=== PATIENT | female | born 1955 | race Two or more races ===

== ENCOUNTER 2023-08-31 02:56 | Inpatient (IN) | payer MEDICARE, OTHER ==
[~2023-08-31] VITALS: Ht 162.6 cm; Wt 83.5 kg
[2023-08-31 03:00] VITALS: PULSE 89; RESP 15; O2SAT 93
[2023-08-31] MEDS: MORPHINE SULFATE 4 MG/ML SYR/VIAL IV ONE (03:41)
[2023-08-31] MEDS: ONDANSETRON HCL 4 MG/2 ML VIAL IV ONE (03:41)
[2023-08-31] MEDS ORDERED: MORPHINE SULFATE INJ 2 MG/ml SYRG IV PRN (05:15)
[2023-08-31] MEDS ORDERED: DEXTROSE (50%) 50ML SYRG IV PRN (05:15)
[2023-08-31] MEDS: SODIUM CHLORIDE 0.9% 1,000 ML IV SCH (05:34)
[2023-08-31] MEDS: InsuLIN REG 1unit/0.01ml Soln (100units/ml) SC SCH ×2 (06:00→16:59)
[2023-08-31 06:21] LABS: Alanine Aminotransferase 31 U/L (7-40); Albumin 3.6 g/dL (3.2-4.8); Alkaline Phosphatase 82 U/L (46-116); Anion Gap 7 (5-15); Aspartate Aminotransferase 25 U/L (13-40); BUN/Creatinine Ratio 28.3 (10.0-20.0); Bilirubin, Total 0.8 mg/dL (0.2-1.0); Blood Urea Nitrogen 15 mg/dL (9-23); Calcium 8.6 mg/dL (8.7-10.4); Carbon Dioxide 24 mmol/L (20-30); Chloride 111 mmol/L (98-107); Glucose 128 mg/dL (74-106); Potassium 3.9 mmol/L (3.5-5.1); Sodium 142 mmol/L (136-145); Total Protein 5.9 g/dL (5.7-8.2)
[2023-08-31 06:22] LABS: INR 1.04 (0.9-1.15); Partial Thromboplastin Time 27.6 SEC (24.5-34.5); Prothrombin Time 10.9 sec (9.3-11.8)
[2023-08-31] MEDS: ACCU-CHEK COMFORT CURVE STRIP VI SCH ×2 (06:22→16:58)
[2023-08-31 06:34] LABS: Basophils # (auto) 0 10 ^3/uL (0-0.2); Basophils % (auto) 0.3 % (0.0-2.0); Eosinophils # (auto) 0 10 ^3/uL (0-0.8); Eosinophils % (auto) 0.2 % (0.0-7.0); Hematocrit 44.2 % (36.0-46.0); Hemoglobin 14.4 g/dL (12.2-16.2); Lymphocytes # (auto) 0.6 10 ^3/uL (0.4-5.4); Lymphocytes % (auto) 7.8 % (10.0-50.0); Mean Corpuscular Hemoglobin 30.5 pg (28.0-32.0); Mean Corpuscular Hgb Conc. 32.6 g/dL (32.0-36.0); Mean Corpuscular Volume 93.5 fL (80.0-100.0); Monocytes # (auto) 0.2 10 ^3/uL (0-1.3); Neutrophils # (auto) 7.4 10 ^3/uL (1.6-8.6); Neutrophils % (auto) 88.7 % (37.0-80.0); Nucleated Red Blood Cells % 0.1 %; Red Blood Cells 4.73 10^6/uL (4.0-5.20); Red Cell Distribution Width 14.8 % (11.8-14.3); White Blood Cell 8.3 10^3/uL (4.4-10.8)
[2023-08-31] MEDS: GASTROGRAFIN 120 ML SOL ONE (07:07)
[2023-08-31] MEDS: ONDANSETRON HCL 4 MG/2 ML VIAL IV PRN (07:47)
[2023-08-31 08:56] VITALS: PULSE 84; RESP 13; O2SAT 95
[2023-08-31] MEDS: PANTOPRAZOLE 40 MG/10 ML VIAL INJ IV ONE (15:30)
[2023-08-31 21:15] VITALS: PULSE 89; RESP 16; O2SAT 96
[2023-09-01 05:28] LABS: Chloride 111 mmol/L (98-107); Potassium 3.2 mmol/L (3.5-5.1); Sodium 141 mmol/L (136-145)
[2023-09-01 05:29] LABS: Anion Gap 6 (5-15); Carbon Dioxide 24 mmol/L (20-30)
[2023-09-01 05:30] LABS: Calcium 8.8 mg/dL (8.7-10.4)
[2023-09-01 05:34] LABS: BUN/Creatinine Ratio 18.4 (10.0-20.0); Blood Urea Nitrogen 9 mg/dL (9-23); Glucose 107 mg/dL (74-106)
[2023-09-01] MEDS: POTASSIUM CHL 20 Meq TABLET PO ONE (09:30)
[2023-09-01 09:38] VITALS: BP 142/84; PULSE 109; RESP 16; TEMP 36.8; O2SAT 91
[2023-09-01] MEDS ORDERED: PANTOPRAZOLE 40 MG/10 ML VIAL INJ IV SCH (10:00)
[2023-09-01 10:06] VITALS: BP 142/84; PULSE 109; RESP 16; TEMP 36.8; O2SAT 91
== END 2023-09-01 10:31 | disposition home or self-care (01) | DRG 392 ==
LOC: ER 02:56 → EDBD 02:56 → OVERFLOW 05:19
PROVIDERS: ADMIT Nurse Practitioner; ATTEND Internal Medicine Geriatric Medicine
DX: K52.9 Noninfective gastroenteritis and colitis, unspecified (principal); I10 Essential (primary) hypertension; E11.9 Type 2 diabetes mellitus without complications; E87.6 Hypokalemia; Z90.49 Acquired absence of other specified parts of digestive tract
CPT/HCPCS: 36415; 74250; 80048; 80053; 82962; 83735; 84484; 85025; 85610; 85730; 96374; 96375; C9113; G0378; J2405